=== PATIENT | female | born 1990 | race American Indian/Alaskan Native ===

== ENCOUNTER 2019-10-09 13:21 | Emergency (ER) | payer MEDICAID ==
--- NOTE | 2019-10-09 16:14 | Event Note ---
ED Screening Note Date of service: 10/09/19 Time: 16:12 ED Screening Note: 29 y/o female comes in a abscesses under both armpits times 3-4 days. No fevers. This initial assessment/diagnostic orders/clinical plan/treatment(s) is/are subject to change based on patients health status, clinical progression and re- assessment by fellow clinical providers in the ED. Further treatment and workup at subsequent clinical providers discretion. Patient/guardian urged not to elope from the ED as their condition may be serious if not clinically assessed and managed. Initial orders include:
[2019-10-09] MEDS ORDERED: KETOROLAC 30 MG/1 ML INJ IM ONE ×2 (20:43→21:41)
[2019-10-09] MEDS ORDERED: LIDOCAINE-MPF (1%) 10 MG/1 ML VIAL 5 ML INFILTRATI ONE (20:43)
[2019-10-09] MEDS ORDERED: SULFAMETHOXAZOLE/TRIMETHOPRIM 800/160MG DS TAB PO ONE ×2 (20:43→21:41)
[2019-10-09 21:18] LABS: Bilirubin,Urine NEG (Negative); Blood,Urine LG (Negative); Color,Urine Yellow (Yellow); Mucus,Urine 3+ /HPF; Urobilinogen,Urine < 2.0 mg/dL (<2.0)
[2019-10-09 21:30] LABS: HCG Qualitative,Urine Negative (Negative)
[2019-10-09] MEDS ORDERED: ONDANSETRON 4 MG ODT TAB PO ONE (21:41)
[2019-10-09] MEDS ORDERED: HYDROcodone/ACETAMINOPHEN 7.5-325MG TAB PO ONE (21:41)
--- NOTE | 2019-10-09 21:48 | Emergency Department Report ---
ED General Adult HPI - General Chief complaint: Skin/Abscess/Foreign Body Stated complaint: N/ KNOTS IN ARM PITS Time Seen by Provider: 10/09/19 16:11 Source: patient Mode of arrival: Ambulatory Limitations: No Limitations - History of Present Illness Initial comments: Patient is a 29-year-old female medical history who presents to the ED with continued acute onset persistent painful swelling and erythematous fluctuant material papular rash on bilateral axilla for the last 1 week, was in the last 2 days. Patient denies dizziness, fever, chills, nausea, vomiting, chest pain, shortness of breath, neck pain, traumatic injury, fall, lifting, numbness and tingling or weakness or upper extremities bilaterally, cough or syncope. Patient states that she has been taking [id number] medications with no relief. MD Complaint: Bilateral axilla rashes -: Sudden, week(s) (1) Location: upper extremity (bilateral axilla) Radiation: non-radiation Severity scale (0 -10): 6 Quality: aching, sharp Consistency: constant Improves with: none Worsens with: none Associated Symptoms: denies other symptoms, rash (erythematous maculopapular rash on bilateral axilla). denies: confusion, chest pain, headaches, loss of appetite, malaise, nausea/vomiting, seizure, shortness of breath, weakness Treatments Prior to Arrival: NSAID - Related Data Home Medications Medication Instructions Recorded Confirmed Last Taken Etonogestrel [Nexplanon] 07/21/14 07/21/14 07/21/14 Previous Rx's Medication Instructions Recorded Last Taken Type metroNIDAZOLE [Flagyl] 500 mg PO BID #20 tablet 07/21/14 Unknown Rx Acetaminophen/Codeine 1 tab PO Q6H PRN #16 tab 10/27/14 Unknown Rx [Acetaminophen-Codeine #3 TAB] Famotidine [Pepcid] 20 mg PO BID #40 tablet 01/06/15 Unknown Rx Hyoscyamine Subl [Levsin Sl] 0.125 mg SL Q4HR PRN #20 tablet 01/06/15 Unknown Rx Promethazine [Phenergan] 25 mg PO Q6H PRN #30 tablet 01/06/15 Unknown Rx Amoxicillin [Trimox CAP] 500 mg PO Q8H #30 capsule 01/17/15 Unknown Rx Ibuprofen [Motrin 600 MG tab] 600 mg PO Q8H PRN #60 tablet 01/17/15 Unknown Rx Prednisone [predniSONE 10 mg 10 mg PO .TAPER #1 tab.ds.pk 01/17/15 Unknown Rx (6-Day Pack, 21 Tabs)] Amoxicillin/K Clav Tab [Augmentin 1 tab PO Q12HR #14 tab 06/23/16 Unknown Rx 875 mg] Fluconazole [Diflucan TAB] 150 mg PO ONCE #2 tablet 06/23/16 Unknown Rx Fluticasone [Flonase] 1 spray NS QDAY #1 bottle 06/01/19 Unknown Rx Gentamicin 0.3% Ophth Soln 2 drops OP Q4H #1 bottle 06/01/19 Unknown Rx Naphazoline HCl/Pheniramine 10 ml OP TID #1 bottle 06/01/19 Unknown Rx [Naphcon-A Eye Drops] predniSONE [Deltasone] 20 mg PO QDAY #5 tab 06/01/19 Unknown Rx Acetaminophen/Codeine [Tylenol 1 tab PO Q6H PRN #12 tab 10/09/19 Unknown Rx /Codeine # 3 tab] Clindamycin [Clindamycin CAP] 300 mg PO Q8HR #60 capsule 10/09/19 Unknown Rx Ibuprofen [Motrin] 800 mg PO Q8HR PRN #24 tablet 10/09/19 Unknown Rx Sulfamethoxazole/Trimethoprim 1 each PO Q12H #20 tablet 10/09/19 Unknown Rx [Bactrim DS TAB] Allergies Allergy/AdvReac Type Severity Reaction Status Date / Time latex Allergy Itching Verified 01/17/15 08:30 morphine Allergy Shortness Verified 01/17/15 08:30 of Breath talc Allergy Rash Verified 01/17/15 08:30 tramadol Allergy Dizziness Verified 01/17/15 08:30 ED Review of Systems ROS: Stated complaint: N/ KNOTS IN ARM PITS Other details as noted in HPI Constitutional: denies: chills, fever Eyes: denies: eye pain, eye discharge, vision change ENT: denies: ear pain, throat pain Respiratory: denies: cough, shortness of breath, wheezing Cardiovascular: denies: chest pain, palpitations Endocrine: no symptoms reported Gastrointestinal: denies: abdominal pain, nausea, diarrhea Genitourinary: denies: urgency, dysuria, discharge Musculoskeletal: denies: back pain, joint swelling, arthralgia Skin: rash (swollen erythematous maculopapular rashes on bilateral axilla), change in color (erythematous). denies: lesions Neurological: denies: headache, weakness, paresthesias Psychiatric: denies: anxiety, depression Hematological/Lymphatic: denies: easy bleeding, easy bruising ED Past Medical Hx - Past Medical History Previous Medical History?: No Additional medical history: chronic pain to hip, knee and back - Surgical History Past Surgical History?: Yes Hx Cholecystectomy: Yes Additional Surgical History: C-sections - Social History Smoking Status: Never Smoker Substance Use Type: None - Medications Home Medications: Home Medications Medication Instructions Recorded Confirmed Last Taken Type Etonogestrel [Nexplanon] 07/21/14 07/21/14 07/21/14 History metroNIDAZOLE [Flagyl] 500 mg PO BID #20 tablet 07/21/14 Unknown Rx Acetaminophen/Codeine 1 tab PO Q6H PRN #16 tab 10/27/14 Unknown Rx [Acetaminophen-Codeine #3 TAB] Famotidine [Pepcid] 20 mg PO BID #40 tablet 01/06/15 Unknown Rx Hyoscyamine Subl [Levsin Sl] 0.125 mg SL Q4HR PRN #20 tablet 01/06/15 Unknown Rx Promethazine [Phenergan] 25 mg PO Q6H PRN #30 tablet 01/06/15 Unknown Rx Amoxicillin [Trimox CAP] 500 mg PO Q8H #30 capsule 01/17/15 Unknown Rx Ibuprofen [Motrin 600 MG tab] 600 mg PO Q8H PRN #60 tablet 01/17/15 Unknown Rx Prednisone [predniSONE 10 mg 10 mg PO .TAPER #1 tab.ds.pk 01/17/15 Unknown Rx (6-Day Pack, 21 Tabs)] Amoxicillin/K Clav Tab [Augmentin 1 tab PO Q12HR #14 tab 06/23/16 Unknown Rx 875 mg] Fluconazole [Diflucan TAB] 150 mg PO ONCE #2 tablet 06/23/16 Unknown Rx Fluticasone [Flonase] 1 spray NS QDAY #1 bottle 06/01/19 Unknown Rx Gentamicin 0.3% Ophth Soln 2 drops OP Q4H #1 bottle 06/01/19 Unknown Rx Naphazoline HCl/Pheniramine 10 ml OP TID #1 bottle 06/01/19 Unknown Rx [Naphcon-A Eye Drops] predniSONE [Deltasone] 20 mg PO QDAY #5 tab 06/01/19 Unknown Rx Acetaminophen/Codeine [Tylenol 1 tab PO Q6H PRN #12 tab 10/09/19 Unknown Rx /Codeine # 3 tab] Clindamycin [Clindamycin CAP] 300 mg PO Q8HR #60 capsule 10/09/19 Unknown Rx Ibuprofen [Motrin] 800 mg PO Q8HR PRN #24 tablet 10/09/19 Unknown Rx Sulfamethoxazole/Trimethoprim 1 each PO Q12H #20 tablet 10/09/19 Unknown Rx [Bactrim DS TAB] ED Physical Exam - General Limitations: No Limitations General appearance: alert, in no apparent distress - Head Head exam: Present: atraumatic, normocephalic, normal inspection - Eye Eye exam: Present: normal appearance, PERRL, EOMI Pupils: Present: normal accommodation - ENT ENT exam: Present: normal exam, normal orophraynx, mucous membranes moist, TM's normal bilaterally, normal external ear exam - Neck Neck exam: Present: normal inspection, full ROM - Respiratory Respiratory exam: Present: normal lung sounds bilaterally. Absent: respiratory distress, wheezes, rales, rhonchi, chest wall tenderness, decreased breath sounds, prolonged expiratory - Cardiovascular Cardiovascular Exam: Present: regular rate, normal rhythm, normal heart sounds. Absent: systolic murmur, diastolic murmur, rubs, gallop - GI/Abdominal GI/Abdominal exam: Present: soft, normal bowel sounds. Absent: tenderness, guarding, rebound, hyperactive bowel sounds, hypoactive bowel sounds, organomegaly - Extremities Exam Extremities exam: Present: normal inspection, full ROM, tenderness (Palpable severely tender bilateral axilla due to erythematous fluctuant maculopapular rash), normal capillary refill - Back Exam Back exam: Present: normal inspection, full ROM. Absent: tenderness, CVA tenderness (R), CVA tenderness (L), muscle spasm, paraspinal tenderness, vertebral tenderness - Neurological Exam Neurological exam: Present: alert, oriented X3, CN II-XII intact, normal gait, reflexes normal - Psychiatric Psychiatric exam: Present: normal affect, normal mood - Skin Skin exam: Present: warm, dry, intact, rash (Erythematous maculopapular fluctuant rash on bilateral axilla), erythema ED Course Vital Signs 10/09/19 14:18 Temperature 98.0 F Pulse Rate 64 Respiratory 18 Rate Blood Pressure 121/80 O2 Sat by Pulse 100 Oximetry - I & D Right Arm Type of Procedure: Simple Site: right axilla Blade Size: 11 I & D Procedure: betadine prep, sterile dressing applied Progress: Patient tolerated the procedure well. Patient had the abscess wound cleaned and dressed appropriately after packing the wound with iodoform gauze. Patient was discharged home on antibiotics and pain medications. Left Arm Type of Procedure: Simple Site: left axilla Blade Size: 11 I & D Procedure: betadine prep, sterile dressing applied Progress: Patient tolerated the procedure well. Patient incised the wound was cleaned thoroughly and iodoform gauze packing inserted into the wound and the wound was dressed appropriately. The patient is sent home on antibiotics and pain medications. ED Medical Decision Making - Medical Decision Making This is a 29-year-old female who presented to the ED with complaint of acute onset persistent painful swollen erythematous maculopapular rashes on axilla laterally for the last 1 week. In the ED, patient is alert and oriented 3 and is not in distress but appears in pain. Patient was treated for pain in the ED and was given oral antibiotics in the ED initially. The bilateral axilla rashes were incised and drained per protocol on the patient tolerated the procedure well. Patient was discharged home on oral antibiotics and advised to return to the ED in 2 days for wound recheck and packing removal. Patient was otherwise advised to follow-up with her primary care physician in 7-10 days for reevaluation or return to the ED immediately if symptoms get worse. - Differential Diagnosis cellulitis; abscess; folliculitis Critical care attestation.: If time is entered above; I have spent that time in minutes in the direct care of this critically ill patient, excluding procedure time. ED Disposition Clinical Impression: Cutaneous abscesses of both axillae, Cellulitis of axillary region, Acute urinary tract infection Disposition: TO HOME OR SELFCARE Is pt being admited?: No Does the pt Need Aspirin: No Condition: Stable Instructions: Cellulitis (ED), Abscess Incision and Drainage (ED), Abscess (ED) Additional Instructions: Take medications with food, drink plenty of fluids and follow-up with your primary care physician in 7-10 days for reevaluation. Return to the ED in 2 days for recheck and packing removal. Otherwise return to the ED immediately if symptoms get worse. Prescriptions: Sulfamethoxazole/Trimethoprim [Bactrim DS TAB] 1 each PO Q12H #20 tablet Clindamycin [Clindamycin CAP] 300 mg PO Q8HR #60 capsule Ibuprofen [Motrin] 800 mg PO Q8HR PRN #24 tablet PRN Reason: Pain , Severe (7-10) Acetaminophen/Codeine [Tylenol /Codeine # 3 tab] 1 tab PO Q6H PRN #12 tab PRN Reason: Pain Referrals: BUSTER DENNIS MD [Staff Physician] - 7-10 days Forms: Work/School Release Form(ED) Time of Disposition: 21:50 Print Language: SPANISH
[2019-10-09 23:52] VITALS: BP 126/69
== END 2019-10-10 00:05 | disposition home or self-care (01) ==
LOC: ED 13:21
DX: L02.412 Cutaneous abscess of left axilla (principal); L02.411 Cutaneous abscess of right axilla; L03.112 Cellulitis of left axilla; L03.111 Cellulitis of right axilla; N39.0 Urinary tract infection, site not specified; Z90.49 Acquired absence of other specified parts of digestive tract; Z98.890 Other specified postprocedural states; Z79.1 Long term (current) use of non-steroidal anti-inflammatories (NSAID); Z79.2 Long term (current) use of antibiotics; Z79.899 Other long term (current) drug therapy; Z91.040 Latex allergy status; Z88.4 Allergy status to anesthetic agent; Z88.8 Allergy status to other drugs, medicaments and biological substances
CPT/HCPCS: 10061; 81001; 81025; 87086; 96372; 99283; J1885; Q0162

== ENCOUNTER 2019-10-31 11:18 | Emergency (ER) | payer MEDICAID ==
--- NOTE | 2019-10-31 13:26 | Event Note ---
ED Screening Note Date of service: 10/31/19 Time: 13:23 ED Screening Note: 29 y o female presents with left armpit abscess x 3 days This initial assessment/diagnostic orders/clinical plan/treatment(s) is/are subject to change based on patients health status, clinical progression and re-assessment by fellow clinical providers in the ED. Further treatment and workup at subsequent clinical providers discretion. Patient/guardian urged not to elope from the ED as their condition may be serious if not clinically assessed and managed. Initial orders include: ACC eval I&D
[2019-10-31] MEDS ORDERED: LIDOCAINE (1%) 10 MG/1 ML VIAL 20 ML MDV INFILTRATI ONE (16:22)
--- NOTE | 2019-10-31 16:36 | Emergency Department Report ---
Abscess Boil HPI - HPI Chief Complaint: Skin/Abscess/Foreign Body Stated Complaint: ABCESS Time Seen by Provider: 10/31/19 16:03 Duration: 4 Days History: Yes Pain, Yes Purulent Drainage, No Fever, No Numbness, No Foreign Body, No Previous History, No Insect Bite HPI: 29-year-old -[place] female patient without significant past medical history presents with complaints of left axillary abscess for the past 4 days. Patient states she has been having recurrent abscesses bilaterally in her armpits for the past 15 years. She states she gets 2-3 abscesses a month, however not all of the abscesses need to be drained. She denies any previous diagnosis of hidradenitis suppurativa. She also denies any fever/chills/sweats or redness to the area Home Medications: Home Medications Medication Instructions Recorded Confirmed Last Taken Etonogestrel [Nexplanon] 07/21/14 07/21/14 07/21/14 Previous Rx's Medication Instructions Recorded Last Taken Type metroNIDAZOLE [Flagyl] 500 mg PO BID #20 tablet 07/21/14 Unknown Rx Acetaminophen/Codeine 1 tab PO Q6H PRN #16 tab 10/27/14 Unknown Rx [Acetaminophen-Codeine #3 TAB] Famotidine [Pepcid] 20 mg PO BID #40 tablet 01/06/15 Unknown Rx Hyoscyamine Subl [Levsin Sl] 0.125 mg SL Q4HR PRN #20 tablet 01/06/15 Unknown Rx Promethazine [Phenergan] 25 mg PO Q6H PRN #30 tablet 01/06/15 Unknown Rx Amoxicillin [Trimox CAP] 500 mg PO Q8H #30 capsule 01/17/15 Unknown Rx Ibuprofen [Motrin 600 MG tab] 600 mg PO Q8H PRN #60 tablet 01/17/15 Unknown Rx Prednisone [predniSONE 10 mg 10 mg PO .TAPER #1 tab.ds.pk 01/17/15 Unknown Rx (6-Day Pack, 21 Tabs)] Amoxicillin/K Clav Tab [Augmentin 1 tab PO Q12HR #14 tab 06/23/16 Unknown Rx 875 mg] Fluconazole [Diflucan TAB] 150 mg PO ONCE #2 tablet 06/23/16 Unknown Rx Fluticasone [Flonase] 1 spray NS QDAY #1 bottle 06/01/19 Unknown Rx Gentamicin 0.3% Ophth Soln 2 drops OP Q4H #1 bottle 06/01/19 Unknown Rx Naphazoline HCl/Pheniramine 10 ml OP TID #1 bottle 06/01/19 Unknown Rx [Naphcon-A Eye Drops] predniSONE [Deltasone] 20 mg PO QDAY #5 tab 06/01/19 Unknown Rx Acetaminophen/Codeine [Tylenol 1 tab PO Q6H PRN #12 tab 10/09/19 Unknown Rx /Codeine # 3 tab] Clindamycin [Clindamycin CAP] 300 mg PO Q8HR #60 capsule 10/09/19 Unknown Rx Clindamycin Phosphate [Cleocin T 1 ml TP BID 30 Days #1 bottle 10/31/19 Unknown Rx 1% TOPICAL SOLN] Ibuprofen [Motrin 800 MG tab] 800 mg PO Q8HR PRN #24 tablet 10/31/19 Unknown Rx Sulfamethoxazole/Trimethoprim 1 each PO Q12H 10 Days #20 tablet 10/31/19 Unknown Rx [Bactrim DS TAB] Allergies/Adverse Reactions: Allergies Allergy/AdvReac Type Severity Reaction Status Date / Time latex Allergy Itching Verified 01/17/15 08:30 morphine Allergy Shortness Verified 01/17/15 08:30 of Breath talc Allergy Rash Verified 01/17/15 08:30 tramadol Allergy Dizziness Verified 01/17/15 08:30 ED Review of Systems ROS: Stated complaint: ABCESS Other details as noted in HPI Constitutional: denies: chills, fever, malaise Skin: lesions. denies: change in color ED Past Medical Hx - Past Medical History Previous Medical History?: No Additional medical history: chronic pain to hip, knee and back - Surgical History Past Surgical History?: Yes Hx Cholecystectomy: Yes Additional Surgical History: C-sections - Social History Smoking Status: Never Smoker Substance Use Type: None - Medications Home Medications: Home Medications Medication Instructions Recorded Confirmed Last Taken Type Etonogestrel [Nexplanon] 07/21/14 07/21/14 07/21/14 History metroNIDAZOLE [Flagyl] 500 mg PO BID #20 tablet 07/21/14 Unknown Rx Acetaminophen/Codeine 1 tab PO Q6H PRN #16 tab 10/27/14 Unknown Rx [Acetaminophen-Codeine #3 TAB] Famotidine [Pepcid] 20 mg PO BID #40 tablet 01/06/15 Unknown Rx Hyoscyamine Subl [Levsin Sl] 0.125 mg SL Q4HR PRN #20 tablet 01/06/15 Unknown Rx Promethazine [Phenergan] 25 mg PO Q6H PRN #30 tablet 01/06/15 Unknown Rx Amoxicillin [Trimox CAP] 500 mg PO Q8H #30 capsule 01/17/15 Unknown Rx Ibuprofen [Motrin 600 MG tab] 600 mg PO Q8H PRN #60 tablet 01/17/15 Unknown Rx Prednisone [predniSONE 10 mg 10 mg PO .TAPER #1 tab.ds.pk 01/17/15 Unknown Rx (6-Day Pack, 21 Tabs)] Amoxicillin/K Clav Tab [Augmentin 1 tab PO Q12HR #14 tab 06/23/16 Unknown Rx 875 mg] Fluconazole [Diflucan TAB] 150 mg PO ONCE #2 tablet 06/23/16 Unknown Rx Fluticasone [Flonase] 1 spray NS QDAY #1 bottle 06/01/19 Unknown Rx Gentamicin 0.3% Ophth Soln 2 drops OP Q4H #1 bottle 06/01/19 Unknown Rx Naphazoline HCl/Pheniramine 10 ml OP TID #1 bottle 06/01/19 Unknown Rx [Naphcon-A Eye Drops] predniSONE [Deltasone] 20 mg PO QDAY #5 tab 06/01/19 Unknown Rx Acetaminophen/Codeine [Tylenol 1 tab PO Q6H PRN #12 tab 10/09/19 Unknown Rx /Codeine # 3 tab] Clindamycin [Clindamycin CAP] 300 mg PO Q8HR #60 capsule 10/09/19 Unknown Rx Clindamycin Phosphate [Cleocin T 1 ml TP BID 30 Days #1 bottle 10/31/19 Unknown Rx 1% TOPICAL SOLN] Ibuprofen [Motrin 800 MG tab] 800 mg PO Q8HR PRN #24 tablet 10/31/19 Unknown Rx Sulfamethoxazole/Trimethoprim 1 each PO Q12H 10 Days #20 tablet 10/31/19 Unknown Rx [Bactrim DS TAB] ED Abscess Boil Physical Exam - Exam General: Vital signs noted. No distress. Alert and acting appropriately. Front/Back of Body, Lg (Color): 1 - Fluctuant open abscess noted to left axilla without surrounding erythema. Active yellow purulent drainage noted. Size: 3 cm Exam: Yes Tenderness, Yes Fluctuance, Yes Normal Neurologic Exam, Yes Normal Circulation, No Surrounding Cellulites/Erythema, No Lymphangitis, No Heart Murmur I & D Note - I & D Note I & D Note: Left axilla. Area cleaned with Betadine. Sterile dressing applied. No blade was used due to abscess already open and draining. Moderate purulent drainage obtained from wound. Packing was placed in the wound. Minimal bleeding occurred during procedure. Patient tolerated procedure well without any immediate complications. ED Course Vital Signs 10/31/19 10/31/19 11:32 13:23 Temperature 98.2 F 98.2 F Pulse Rate 90 82 Respiratory 18 18 Rate Blood Pressure 121/73 121/73 O2 Sat by Pulse 99 99 Oximetry Critical care attestation.: If time is entered above; I have spent that time in minutes in the direct care of this critically ill patient, excluding procedure time. ED Medical Decision Making - Medical Decision Making Incision and drainage performed without any immediate complications. Patient tolerated procedure well. Patient to discharge home with Bactrim prescription and prescription. Suspect patient has hidradenitis supra T. Allie, recommend follow-up with primary care or dermatology for further evaluation and treatment. Prescription also given for topical clindamycin. Discussed strict return precautions in detail with patient who verbalizes understanding ED Disposition Clinical Impression: Axillary abscess Disposition: DC-01 TO HOME OR SELFCARE Is pt being admited?: No Condition: Stable Instructions: Abscess Incision and Drainage (ED) Prescriptions: Sulfamethoxazole/Trimethoprim [Bactrim DS TAB] 1 each PO Q12H 10 Days #20 tablet Clindamycin Phosphate [Cleocin T 1% TOPICAL SOLN] 1 ml TP BID 30 Days #1 bottle Ibuprofen [Motrin 800 MG tab] 800 mg PO Q8HR PRN #24 tablet PRN Reason: Pain , Severe (7-10) Referrals: BUSTER DENNIS MD [Staff Physician] - 3-5 Days
[2019-10-31 16:56] VITALS: BP 131/88
== END 2019-10-31 17:32 | disposition home or self-care (01) ==
LOC: ED 11:18
DX: L02.412 Cutaneous abscess of left axilla (principal); Z98.890 Other specified postprocedural states; G89.29 Other chronic pain; Z90.49 Acquired absence of other specified parts of digestive tract; Z88.5 Allergy status to narcotic agent; Z91.040 Latex allergy status; Z88.6 Allergy status to analgesic agent; Z91.09 Other allergy status, other than to drugs and biological substances; Z79.899 Other long term (current) drug therapy

== ENCOUNTER 2020-02-22 04:57 | Emergency (ER) | payer MEDICAID ==
[2020-02-22 05:51] LABS: Bacteria,Urine 2+ /HPF (Negative); Bilirubin,Urine NEG (Negative); Blood,Urine NEG (Negative); Color,Urine Yellow (Yellow); Mucus,Urine 1+ /HPF; Urobilinogen,Urine < 2.0 mg/dL (<2.0)
[2020-02-22 06:47] LABS: Basophils % (Auto) 0.4 % (0.0-1.8); Eosinophils # (Auto) 0.1 K/mm3 (0.0-0.4); Eosinophils % (Auto) 0.7 % (0.0-4.3); Hemoglobin 12.7 gm/dl (10.1-14.3); Lymphocytes # (Auto) 1.3 K/mm3 (1.2-5.4); Lymphocytes % (Auto) 14.6 % (13.4-35.0); Monocytes # (Auto) 0.4 K/mm3 (0.0-0.8); Monocytes % (Auto) 4.7 % (0.0-7.3)
--- NOTE | 2020-02-22 06:55 | Ultrasound Report ---
ULTRASOUND OBSTETRIC INDICATION / CLINICAL INFORMATION: abd pain. Clinical Gestational Age (GA): 17 weeks 0 days TECHNIQUE: Transabdominal. COMPARISON: None available. FINDINGS: There is a single intrauterine . Biparietal Diameter = 3.6 cm = 17 weeks, 0 day(s). Head Circumference = 13.6 cm = 17 weeks, 0 day(s). Abdominal Circumference = 11.3 cm = 17 weeks, 1 day(s). Femur Length = 2.2 cm = 16 weeks, 3 day(s). Average Ultrasound Age (AUA) = 16 weeks, 6 day(s). Heart Rate: 155 beats per minute. Estimated Weight in grams (if calculated): 71 +/- 25 Estimated Weight Growth Percentile (if calculated): Not calculated Position: cephalic. Cervix: closed. Length in cm (if measured): 7.7 Placenta: Posterior grade 0 and free of the os. Amniotic Fluid Volume: normal Amniotic Fluid Index (TANNER) in cm (if calculated): 8.8. Maternal Adnexa: No significant abnormality. IMPRESSION: 1. Single, living intrauterine with estimated sonographic age of 16 weeks, 6 day(s). 2. No significant sonographic abnormality. Signer Name: Connor Waters MD Signed: 02/22/2020 6:51 AM Workstation Name: [id number]
[2020-02-22 06:58] LABS: Red Blood Count 3.96 M/mm3 (3.65-5.03)
[2020-02-22 06:59] LABS: Hematocrit 36.1 % (30.3-42.9); Mean Corpuscular HGB Conc 35 % (30-34); Mean Corpuscular Volume 91 fl (79-97); Platelet Count 222 K/mm3 (140-440); Red Cell Distribution Width 13.4 % (13.2-15.2)
[2020-02-22 07:08] LABS: Alanine Aminotransferase 10 units/L (7-56); Albumin 3.9 g/dL (3.9-5); BUN/Creatinine Ratio 10; Blood Urea Nitrogen 4 mg/dL (7-17); Hemolysis Index 2
--- NOTE | 2020-02-22 09:08 | Emergency Department Report ---
ED Headache HPI - General Chief Complaint: Headache Stated Complaint: MIGRAINE Time Seen by Provider: 02/22/20 09:04 Source: patient Exam Limitations: no limitations - History of Present Illness Initial Comments: 29-year-old female with a history of chronic migraine headaches. She is seen a neurologist at [facility] for the same. She is not on any chronic medications. She is 16 to 17 weeks . She has had OB care. She does not report any complications of the current . She is not hypertensive. She does have a history of chronic pain syndrome. I do not know if she is in chronic pain management. She states she has had a diffuse headache for the last 3 days. She does not report recent scintillations or scotomata or change in her vision. She has had no fever or chills. She states that she is nauseated and has vomited yesterday and today. She has had no focal neurological change. Headaches are dull/aching. She describes it as a typical migraine despite the duration of her headache. She does not report any other problems found on neurological work-up. Timing/Duration: other (3 day) Quality: moderate, severe Recent Head Trauma: chronic headaches Modifying Factors: improves with: other Associated Symptoms: nausea/vomiting Allergies/Adverse Reactions: Allergies latex Allergy (Verified 01/17/15 08:30) Itching morphine Allergy (Verified 01/17/15 08:30) Shortness of Breath talc Allergy (Verified 01/17/15 08:30) Rash tramadol Allergy (Verified 01/17/15 08:30) Dizziness Home Medications: Ambulatory Orders Etonogestrel [Nexplanon] 07/21/14 metroNIDAZOLE [Flagyl] 500 mg PO BID #20 tablet 07/21/14 Acetaminophen/Codeine [Acetaminophen-Codeine #3 TAB] 1 tab PO Q6H PRN #16 tab 10/27/14 Famotidine [Pepcid] 20 mg PO BID #40 tablet 01/06/15 Hyoscyamine Subl [Levsin Sl] 0.125 mg SL Q4HR PRN #20 tablet 01/06/15 Promethazine [Phenergan] 25 mg PO Q6H PRN #30 tablet 01/06/15 Amoxicillin [Trimox CAP] 500 mg PO Q8H #30 capsule 01/17/15 Ibuprofen [Motrin 600 MG tab] 600 mg PO Q8H PRN #60 tablet 01/17/15 Prednisone [predniSONE 10 mg (6-Day Pack, 21 Tabs)] 10 mg PO .TAPER #1 tab.ds.pk 01/17/15 Amoxicillin/K Clav Tab [Augmentin 875 mg] 1 tab PO Q12HR #14 tab 06/23/16 Fluconazole (Nf) [Diflucan TAB] 150 mg PO ONCE #2 tablet 06/23/16 Fluticasone [Flonase] 1 spray NS QDAY #1 bottle 06/01/19 Gentamicin 0.3% Ophth Soln 2 drops OP Q4H #1 bottle 06/01/19 Naphazoline HCl/Pheniramine [Naphcon-A Eye Drops] 10 ml OP TID #1 bottle 06/01/19 predniSONE [Deltasone] 20 mg PO QDAY #5 tab 06/01/19 Acetaminophen/Codeine [Tylenol /Codeine # 3 tab] 1 tab PO Q6H PRN #12 tab 10/09/19 Clindamycin [Clindamycin CAP] 300 mg PO Q8HR #60 capsule 10/09/19 Clindamycin Phosphate [Cleocin T 1% TOPICAL SOLN] 1 ml TP BID 30 Days #1 bottle 10/31/19 Ibuprofen [Motrin 800 MG tab] 800 mg PO Q8HR PRN #24 tablet 10/31/19 Sulfamethoxazole/Trimethoprim [Bactrim DS TAB] 1 each PO Q12H 10 Days #20 tablet 10/31/19 Butalb/Acetaminophen/Caffeine [Fioricet 50-300-40 mg CAP] 1 cap PO Q6HR PRN #7 cap 02/22/20 ED Review of Systems ROS: Stated complaint: MIGRAINE Other details as noted in HPI Constitutional: denies: chills, fever Eyes: denies: eye pain, eye discharge, vision change ENT: denies: ear pain, throat pain Respiratory: denies: cough, shortness of breath, wheezing Cardiovascular: denies: chest pain, palpitations Endocrine: no symptoms reported Gastrointestinal: nausea, vomiting. denies: abdominal pain (Despite the triage note the patient does not complain of abdominal pain to me), diarrhea Genitourinary: denies: urgency, dysuria, discharge Musculoskeletal: denies: back pain, joint swelling, arthralgia Skin: denies: rash, lesions Neurological: headache. denies: weakness, paresthesias Psychiatric: denies: anxiety, depression Hematological/Lymphatic: denies: easy bleeding, easy bruising ED Past Medical Hx - Past Medical History Previous Medical History?: Yes Additional medical history: chronic pain to hip, knee and back - Surgical History Hx Cholecystectomy: Yes Additional Surgical History: C-sections x2 - Social History Smoking Status: Never Smoker Substance Use Type: None - Medications Home Medications: Home Medications Medication Instructions Recorded Confirmed Last Taken Type Etonogestrel [Nexplanon] 07/21/14 07/21/14 07/21/14 History metroNIDAZOLE [Flagyl] 500 mg PO BID #20 tablet 07/21/14 Unknown Rx Acetaminophen/Codeine 1 tab PO Q6H PRN #16 tab 10/27/14 Unknown Rx [Acetaminophen-Codeine #3 TAB] Famotidine [Pepcid] 20 mg PO BID #40 tablet 01/06/15 Unknown Rx Hyoscyamine Subl [Levsin Sl] 0.125 mg SL Q4HR PRN #20 tablet 01/06/15 Unknown Rx Promethazine [Phenergan] 25 mg PO Q6H PRN #30 tablet 01/06/15 Unknown Rx Amoxicillin [Trimox CAP] 500 mg PO Q8H #30 capsule 01/17/15 Unknown Rx Ibuprofen [Motrin 600 MG tab] 600 mg PO Q8H PRN #60 tablet 01/17/15 Unknown Rx Prednisone [predniSONE 10 mg 10 mg PO .TAPER #1 tab.ds.pk 01/17/15 Unknown Rx (6-Day Pack, 21 Tabs)] Amoxicillin/K Clav Tab [Augmentin 1 tab PO Q12HR #14 tab 06/23/16 Unknown Rx 875 mg] Fluconazole (Nf) [Diflucan TAB] 150 mg PO ONCE #2 tablet 06/23/16 Unknown Rx Fluticasone [Flonase] 1 spray NS QDAY #1 bottle 06/01/19 Unknown Rx Gentamicin 0.3% Ophth Soln 2 drops OP Q4H #1 bottle 06/01/19 Unknown Rx Naphazoline HCl/Pheniramine 10 ml OP TID #1 bottle 06/01/19 Unknown Rx [Naphcon-A Eye Drops] predniSONE [Deltasone] 20 mg PO QDAY #5 tab 06/01/19 Unknown Rx Acetaminophen/Codeine [Tylenol 1 tab PO Q6H PRN #12 tab 10/09/19 Unknown Rx /Codeine # 3 tab] Clindamycin [Clindamycin CAP] 300 mg PO Q8HR #60 capsule 10/09/19 Unknown Rx Clindamycin Phosphate [Cleocin T 1 ml TP BID 30 Days #1 bottle 10/31/19 Unknown Rx 1% TOPICAL SOLN] Ibuprofen [Motrin 800 MG tab] 800 mg PO Q8HR PRN #24 tablet 10/31/19 Unknown Rx Sulfamethoxazole/Trimethoprim 1 each PO Q12H 10 Days #20 tablet 10/31/19 Unknown Rx [Bactrim DS TAB] Butalb/Acetaminophen/Caffeine 1 cap PO Q6HR PRN #7 cap 02/22/20 Unknown Rx [Fioricet 50-300-40 mg CAP] ED Physical Exam - General Limitations: No Limitations General appearance: alert, in no apparent distress - Head Head exam: Present: atraumatic, normocephalic, normal inspection - Eye Eye exam: Present: normal appearance, PERRL, EOMI. Absent: scleral icterus - ENT ENT exam: Present: mucous membranes moist - Neck Neck exam: Present: normal inspection. Absent: tenderness, meningismus - Respiratory Respiratory exam: Present: normal lung sounds bilaterally. Absent: respiratory distress - Cardiovascular Cardiovascular Exam: Present: regular rate, normal rhythm. Absent: systolic m urmur, diastolic murmur, rubs, gallop - GI/Abdominal GI/Abdominal exam: Present: soft, normal bowel sounds, other (Uterus consistent with dates). Absent: distended, tenderness - Extremities Exam Extremities exam: Present: normal inspection. Absent: pedal edema, joint swelling, calf tenderness - Back Exam Back exam: Present: normal inspection - Neurological Exam Neurological exam: Present: alert, oriented X3, CN II-XII intact, normal gait, other (Cerebellar testing was normal). Absent: motor sensory deficit - Psychiatric Psychiatric exam: Present: normal affect, normal mood - Skin Skin exam: Present: warm, dry, intact, normal color. Absent: rash ED Course Vital Signs 02/22/20 02/22/20 05:06 09:16 Temperature 98.2 F 98.1 F Pulse Rate 78 68 Respiratory 18 18 Rate Blood Pressure 122/64 Blood Pressure 125/60 [Right] O2 Sat by Pulse 99 100 Oximetry - Reevaluation(s) Reevaluation #1: Patient will be given analgesia. She is referred back to her neurologist and OB physician. I will give her a prescription for a few Fioricet. 02/22/20 09:29 ED Medical Decision Making - Lab Data Result diagrams: 02/22/20 06:33 02/22/20 06:33 Laboratory Results - last 24 hr 02/22/20 02/22/20 02/22/20 05:30 06:33 06:33 WBC 8.7 RBC 3.96 Hgb 12.7 Hct 36.1 MCV 91 MCH 32 MCHC 35 H RDW 13.4 Plt Count 222 Lymph % (Auto) 14.6 [place] % (Auto) 4.7 Eos % (Auto) 0.7 Baso % (Auto) 0.4 Lymph # 1.3 [place] # 0.4 Eos # 0.1 Baso # 0.0 Seg Neutrophils % 79.6 H Seg Neutrophils # 7.0 Sodium 137 Potassium 3.6 Chloride 103.5 Carbon Dioxide 22 Anion Gap 15 BUN 4 L Creatinine 0.4 L Estimated GFR > 60 BUN/Creatinine Ratio 10 Glucose 97 Calcium 9.0 Total Bilirubin 0.20 AST 12 ALT 10 Alkaline Phosphatase 72 Total Protein 7.1 Albumin 3.9 Albumin/Globulin Ratio 1.2 Lipase HCG, Quant Urine Color Yellow Urine Turbidity Cloudy Urine pH 5.0 Ur Specific [place] 1.020 Urine Protein 30 mg/dl Urine Glucose (UA) Neg Urine Ketones Tr Urine Blood Neg Urine Nitrite Neg Urine Bilirubin Neg Urine Urobilinogen < 2.0 Ur Leukocyte Esterase Tr Urine WBC (Auto) 9.0 H Urine RBC (Auto) 2.0 U Epithel Cells (Auto) 31.0 H Urine Bacteria (Auto) 2+ Urine Mucus 1+ Blood Type 02/22/20 02/22/20 02/22/20 06:33 06:33 06:33 WBC RBC Hgb Hct MCV MCH MCHC RDW Plt Count Lymph % (Auto) [place] % (Auto) Eos % (Auto) Baso % (Auto) Lymph # [place] # Eos # Baso # Seg Neutrophils % Seg Neutrophils # Sodium Potassium Chloride Carbon Dioxide Anion Gap BUN Creatinine Estimated GFR BUN/Creatinine Ratio Glucose Calcium Total Bilirubin AST ALT Alkaline Phosphatase Total Protein Albumin Albumin/Globulin Ratio Lipase 12 L HCG, Quant 71237 H Urine Color Urine Turbidity Urine pH Ur Specific [place] Urine Protein Urine Glucose (UA) Urine Ketones Urine Blood Urine Nitrite Urine Bilirubin Urine Urobilinogen Ur Leukocyte Esterase Urine WBC (Auto) Urine RBC (Auto) U Epithel Cells (Auto) Urine Bacteria (Auto) Urine Mucus Blood Type O POSITIVE - Radiology Data Radiology results: report reviewed IMPRESSION: 1. Single, living intrauterine with estimated sonographic age of 16 weeks, 6 day(s). 2. No significant sonographic abnormality. Critical care attestation.: If time is entered above; I have spent that time in minutes in the direct care of this critically ill patient, excluding procedure time. ED Disposition Clinical Impression: with 16 completed weeks gestation Cephalalgia Qualifiers: Headache type: unspecified Headache chronicity pattern: acute headache Intractability: not intractable Qualified Code(s): R51 - Headache Disposition: DC- TO HOME OR SELFCARE Is pt being admited?: No Does the pt Need Aspirin: No Condition: Stable Instructions: Abdominal Pain (ED), Acute Headache (ED) Additional Instructions: Return any acute change or problem. Prescriptions: Butalb/Acetaminophen/Caffeine [Fioricet 50-300-40 mg CAP] 1 cap PO Q6HR PRN #7 cap PRN Reason: Headache Referrals: PRIMARY CARE, [Primary Care Provider] - 3-5 Days Usual neurologist at [facility], OB physician [Other] - 3-5 Days Time of Disposition: 09:30
[2020-02-22 09:17] VITALS: BP 125/60
[2020-02-22] MEDS ORDERED: ONDANSETRON 4 MG ODT TAB PO ONE (09:20)
[2020-02-22] MEDS ORDERED: HYDROmorphone 1 MG/1 ML INJ IM ONE (09:21)
== END 2020-02-22 10:13 | disposition home or self-care (01) ==
LOC: ED 04:57
DX: O26.892 Other specified pregnancy related conditions, second trimester (principal); R51 Headache; Z3A.16 16 weeks gestation of pregnancy; Z98.890 Other specified postprocedural states; Z79.1 Long term (current) use of non-steroidal anti-inflammatories (NSAID); Z79.2 Long term (current) use of antibiotics; Z79.899 Other long term (current) drug therapy; Z88.6 Allergy status to analgesic agent; Z91.040 Latex allergy status; Z88.8 Allergy status to other drugs, medicaments and biological substances
CPT/HCPCS: 36415; 76805; 80053; 81001; 83690; 84702; 85025; 86900; 86901; 87086; 96372; 99284; J1170; Q0162